=== PATIENT | male | born 1990 | race Two or more races ===

== ENCOUNTER 2020-11-07 17:18 | Inpatient (IN) | payer MEDICAID ==
[~2020-11-07] VITALS: Ht 160 cm; Wt 72.7 kg
[2020-11-07] MEDS ORDERED: TETanus/Pertussis (Acell)/Diphther VAC/PF (Tdap-Adult) 0.5ml syringe IMVAC ONE (19:55)
[2020-11-07] MEDS ORDERED: LIDOcaine 1% W/epiNEPHrine 1:200,000 10ml vial IJ ONE (19:55)
[2020-11-07 20:38] LABS: BASOPHILS # (AUTO) 0.1 X10'3 (0-0.2); BASOPHILS % (AUTO) 0.3 % (0-1); EOSINOPHILS # (AUTO) 0.1 X10'3 (0-0.9); EOSINOPHILS % (AUTO) 0.6 % (0-6); HEMOGLOBIN 14.2 g/dl (14.0-17.9); LYMPHOCYTES # (AUTO) 3.6 X10'3 (1.1-4.8); LYMPHOCYTES % (AUTO) 17.4 % (21-51); MEAN CORPUSCULAR HEMOGLOBIN 30.4 PG (27.0-31.0); MEAN CORPUSCULAR HGB CONC 33.7 g/dL (33.0-36.5); MEAN CORPUSCULAR VOLUME 90.2 FL (78-98); MEAN PLATELET VOLUME 7.2 FL (7.4-10.4); MONOCYTES # (AUTO) 2.2 X10'3 (0-0.9); MONOCYTES % (AUTO) 10.9 % (2-12); NEUTROPHILS # (AUTO) 14.5 X10'3 (1.8-7.7); NEUTROPHILS % (AUTO) 70.8 % (42-75); PLATELET COUNT 461 X10'3 (140-440); RED BLOOD COUNT 4.66 X10'6 (4.70-6.10); RED CELL DISTRIBUTION WIDTH 13.9 % (11.5-14.5); WHITE BLOOD COUNT 20.5 X10'3 (4.5-11.0)
[2020-11-07 20:59] LABS: ALANINE AMINOTRANSFERASE 114 U/L (12-78); ALBUMIN 3.2 G/DL (3.4-5.0); ALBUMIN/GLOBULIN RATIO 0.6 (1.1-1.5); ALKALINE PHOSPHATASE 139 IU/L (46-116); ANION GAP 8 (8-16); ASPARTATE AMINO TRANSFERASE 41 U/L (10-37); BILIRUBIN,TOTAL 0.9 MG/DL (0.1-1.0); BLOOD UREA NITROGEN 11 MG/DL (7-18); BUN/CREATININE RATIO 12.5 (5.4-32.0); CHLORIDE 96 MMOL/L (99-107); CREATININE 0.88 MG/DL (0.60-1.10); GLUCOSE 97 MG/DL (70-104); POTASSIUM 3.6 MMOL/L (3.5-5.1); SODIUM 132 MMOL/L (135-145); TOTAL CARBON DIOXIDE 27.7 MMOL/L (24-32); TOTAL PROTEIN 8.4 G/DL (6.4-8.2); eGFR > 90 ML/MIN
[2020-11-07] MEDS ORDERED: vancomycin/NS 1 GM ADD-VANTAGE 250 ML IV ONE (21:25)
[2020-11-07] MEDS ORDERED: piperacillin/tazo 3.375gm/50ml 50 ML IV ONE (21:25)
[2020-11-07] MEDS ORDERED: LORazepam 2 mg/ml vial IV ONE ×2 (21:45→22:35)
[2020-11-07] MEDS ORDERED: nicotine 14mg patch - 24hr TD ONE (21:45)
[2020-11-07] MEDS ORDERED: magnesium 2GM in 50ml NS 50 ML IV PRN (22:30)
[2020-11-07] MEDS ORDERED: potassium Cl 20 mEq SR tablet PO PRN ×2 (22:30)
[2020-11-07] MEDS ORDERED: ondansetron/PF 4mg/2ml inj IV PRN (22:30)
[2020-11-07] MEDS: normal saline 1000ml 1,000 ML IV SCH (22:30)
[2020-11-07] MEDS ORDERED: potassium Cl 40MEQ/1/2NS 520ml 520 ML IV PRN ×2 (22:30)
[2020-11-07] MEDS ORDERED: mag hydrox/Alum hydrox/simeth 30ml oral suspension PO PRN (22:30)
[2020-11-07] MEDS ORDERED: magnesium 4gm in 100ml NS 100 ML IV PRN (22:30)
[2020-11-07] MEDS ORDERED: acetaminophen 325mg tablet PO PRN (22:30)
[2020-11-07] MEDS ORDERED: magnesium hydroxide 30ml (MOM) UD suspension PO PRN (22:30)
[2020-11-07] MEDS ORDERED: HYDROmorphone 1 mg/ml syringe IV PRN ×2 (22:35)
--- NOTE | 2020-11-07 23:04 | NUR ---
Patient in room ED 10. I have received report from ROB Newton and had the opportunity to ask questions and assume patient care.
--- NOTE | 2020-11-07 23:36 | NUR ---
Patient arrived to floor, VSS, refusing skin check, states he doesnt want to be rude but has PTSD and cannot handle this "nurse stuff". Pt requesting food and drinks. Was able to get limited assessment done; pt would not uncover body from blankets. Non-skid socks placed on patient. Oriented to TV, bed functions, call mckenzie, and urinal. Patient instructed not to get out of bed without calling for stand by. Pt confirms understanding.
[2020-11-08] VITALS: BP 131/84
[2020-11-08] MEDS ORDERED: vancomycin/NS 1 GM ADD-VANTAGE 250 ML IV SCH (04:00)
--- NOTE | 2020-11-08 06:25 | NUR ---
Problems reprioritized. Patient report given, questions answered & plan of care reviewed with ROB Hernandez.
--- NOTE | 2020-11-08 07:00 | NUR ---
Patient in room [facility] 344. I have received report from Ramona Hermosillo RN and had the opportunity to ask questions and assume patient care.
[2020-11-08 07:02] LABS: BASOPHILS # (AUTO) 0.1 X10'3 (0-0.2); BASOPHILS % (AUTO) 0.3 % (0-1); EOSINOPHILS # (AUTO) 0.2 X10'3 (0-0.9); HEMATOCRIT 40.7 % (42.0-52.0); HEMOGLOBIN 13.6 g/dl (14.0-17.9); LYMPHOCYTES # (AUTO) 3.9 X10'3 (1.1-4.8); LYMPHOCYTES % (AUTO) 18.3 % (21-51); MEAN CORPUSCULAR HEMOGLOBIN 30.1 PG (27.0-31.0); MEAN CORPUSCULAR HGB CONC 33.5 g/dL (33.0-36.5); MEAN CORPUSCULAR VOLUME 89.9 FL (78-98); MEAN PLATELET VOLUME 7.2 FL (7.4-10.4); MONOCYTES # (AUTO) 2.4 X10'3 (0-0.9); MONOCYTES % (AUTO) 11.1 % (2-12); NEUTROPHILS # (AUTO) 14.9 X10'3 (1.8-7.7); NEUTROPHILS % (AUTO) 69.3 % (42-75); PLATELET COUNT 463 X10'3 (140-440); RED BLOOD COUNT 4.53 X10'6 (4.70-6.10); RED CELL DISTRIBUTION WIDTH 14.1 % (11.5-14.5); WHITE BLOOD COUNT 21.4 X10'3 (4.5-11.0)
[2020-11-08 07:25] LABS: ALANINE AMINOTRANSFERASE 96 U/L (12-78); ALBUMIN 2.6 G/DL (3.4-5.0); ALBUMIN/GLOBULIN RATIO 0.5 (1.1-1.5); ALKALINE PHOSPHATASE 127 IU/L (46-116); ANION GAP 7 (8-16); ASPARTATE AMINO TRANSFERASE 33 U/L (10-37); BILIRUBIN,TOTAL 0.7 MG/DL (0.1-1.0); BLOOD UREA NITROGEN 8 MG/DL (7-18); BUN/CREATININE RATIO 9.4 (5.4-32.0); CALCIUM 8.7 MG/DL (8.5-10.1); CHLORIDE 102 MMOL/L (99-107); CREATININE 0.85 MG/DL (0.60-1.10); GLUCOSE 95 MG/DL (70-104); MAGNESIUM 2.3 MG/DL (1.5-2.4); SODIUM 135 MMOL/L (135-145); TOTAL CARBON DIOXIDE 26.3 MMOL/L (24-32); TOTAL PROTEIN 7.6 G/DL (6.4-8.2); eGFR > 90 ML/MIN
[2020-11-08] MEDS: piperacillin/tazo 4.5gm/100ml 100 ML IV SCH ×3 (07:34→22:27)
[2020-11-08] MEDS: nicotine 21mg patch - 24 hr TD SCH (07:39)
[2020-11-08] MEDS: buprenorphine/naloxone 8MG-2MG SUBlingual film SL SCH (07:39)
[2020-11-08 07:46] LABS: PLATELET ESTIMATE INCREASED; TOTAL CELLS COUNTED 100
[2020-11-08 08:00] VITALS: BP 104/70
[2020-11-08] MEDS: K and/or MAG REPLACEMENT MC SCH ×2 (08:00→20:00)
[2020-11-08] MEDS: normal saline 1000ml 1,000 ML IV SCH ×2 (10:07→18:30)
--- NOTE | 2020-11-08 10:37 | NUR ---
PAGER ID: [phone] MESSAGE: Meli/surgical [id number]. Pt Marco RM: 344-B Pt c/o 06/19 pain, does not pain meds orders. can you pls order something? thank you
[2020-11-08] MEDS ORDERED: NO HOME MEDS (11:01)
[2020-11-08 12:00] VITALS: BP 103/65
--- NOTE | 2020-11-08 18:26 | NUR ---
Unable to hang 1600 Vanco. Pt has Zosyn running and refused to get another IV to administer Vanco.
--- NOTE | 2020-11-08 18:28 | NUR ---
Problems reprioritized. Patient report given, questions answered & plan of care reviewed with Corie RN.
[2020-11-08 19:00] VITALS: BP 124/75
[2020-11-08] MEDS: VANCOmycin 1250MG/NS 250ml Bag 250 ML IV SCH (19:57)
[2020-11-08] MEDS ORDERED: acetaminophen 325mg tablet PO PRN (22:10)
[2020-11-08] MEDS ORDERED: HYDROcodone/acetaminophen 10/325mg tab PO PRN (22:10)
[2020-11-08] MEDS: HYDROcodone/acetaminophen 5mg/325mg tablet PO PRN (22:39)
[2020-11-08 23:30] VITALS: BP 120/81
[2020-11-09] MEDS: normal saline 1000ml 1,000 ML IV SCH (03:28)
[2020-11-09] MEDS: VANCOmycin 1250MG/NS 250ml Bag 250 ML IV SCH (03:50)
[2020-11-09] MEDS: piperacillin/tazo 4.5gm/100ml 100 ML IV SCH (06:02)
[2020-11-09 06:09] LABS: BASOPHILS # (AUTO) 0.1 X10'3 (0-0.2); BASOPHILS % (AUTO) 0.8 % (0-1); EOSINOPHILS # (AUTO) 0.4 X10'3 (0-0.9); EOSINOPHILS % (AUTO) 2.8 % (0-6); HEMATOCRIT 36.8 % (42.0-52.0); HEMOGLOBIN 12.5 g/dl (14.0-17.9); LYMPHOCYTES # (AUTO) 5.1 X10'3 (1.1-4.8); LYMPHOCYTES % (AUTO) 38.6 % (21-51); MEAN CORPUSCULAR VOLUME 91.2 FL (78-98); MEAN PLATELET VOLUME 7.3 FL (7.4-10.4); MONOCYTES # (AUTO) 1.3 X10'3 (0-0.9); MONOCYTES % (AUTO) 9.9 % (2-12); NEUTROPHILS # (AUTO) 6.4 X10'3 (1.8-7.7); NEUTROPHILS % (AUTO) 47.9 % (42-75); PLATELET COUNT 447 X10'3 (140-440); RED BLOOD COUNT 4.04 X10'6 (4.70-6.10); RED CELL DISTRIBUTION WIDTH 13.8 % (11.5-14.5); WHITE BLOOD COUNT 13.3 X10'3 (4.5-11.0)
[2020-11-09 06:37] LABS: ALANINE AMINOTRANSFERASE 82 U/L (12-78); ALBUMIN 2.3 G/DL (3.4-5.0); ALBUMIN/GLOBULIN RATIO 0.5 (1.1-1.5); ALKALINE PHOSPHATASE 105 IU/L (46-116); ANION GAP 7 (8-16); ASPARTATE AMINO TRANSFERASE 33 U/L (10-37); BILIRUBIN,TOTAL 0.3 MG/DL (0.1-1.0); BLOOD UREA NITROGEN 8 MG/DL (7-18); BUN/CREATININE RATIO 10.7 (5.4-32.0); CALCIUM 8.1 MG/DL (8.5-10.1); CHLORIDE 107 MMOL/L (99-107); CREATININE 0.75 MG/DL (0.60-1.10); GLUCOSE 100 MG/DL (70-104); MAGNESIUM 2.1 MG/DL (1.5-2.4); SODIUM 139 MMOL/L (135-145); TOTAL CARBON DIOXIDE 25.2 MMOL/L (24-32); TOTAL PROTEIN 6.6 G/DL (6.4-8.2); eGFR > 90 ML/MIN
[2020-11-09 07:00] VITALS: BP 93/57
[2020-11-09] MEDS: K and/or MAG REPLACEMENT MC SCH (07:05)
[2020-11-09] MEDS: nicotine 21mg patch - 24 hr TD SCH (07:50)
[2020-11-09] MEDS: buprenorphine/naloxone 8MG-2MG SUBlingual film SL SCH (07:51)
[2020-11-09 11:00] VITALS: BP 117/75
[2020-11-09] MEDS: HYDROcodone/acetaminophen 5mg/325mg tablet PO PRN (12:04)
--- NOTE | 2020-11-09 13:47 | NUR ---
Vince Olvera RN, pt is leaving A. Dr. Nation was made aware.
--- NOTE | 2020-11-09 13:50 | NUR ---
Patient stated that he no longer wanted to be here and that he wanted to see his daughter. 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 Patient stated an understanding of this information yet still stated he would like to leave. Dr. Nation was informed and no new orders were given. Patient was then given information about how to take care of the bilateral I&D sites. Patient was also given supplies to take with him so that he could safely clean and change bandages. Patient PIV was removed with cannula intact and patient gathered belongings and left the hospital after signing the AMA form.
[2020-11-10] MEDS ORDERED: VANCOMYCIN LEVEL IV ONE (03:30)
== END 2020-11-09 13:57 | disposition left against medical advice (07) | DRG 720 ==
LOC: ER 17:19 → ED HOLD 22:27 → SUR 3N 23:15
PROVIDERS: ADMIT Family Medicine; ATTEND Internal Medicine
DX: A41.9 Sepsis, unspecified organism (principal); L02.414 Cutaneous abscess of left upper limb; L03.114 Cellulitis of left upper limb; L02.413 Cutaneous abscess of right upper limb; F11.90 Opioid use, unspecified, uncomplicated; F43.10 Post-traumatic stress disorder, unspecified; Z87.891 Personal history of nicotine dependence; F15.10 Other stimulant abuse, uncomplicated
CPT/HCPCS: 36415; 73218; 73221; 76882; 80053; 83605; 83735; 84145; 85007; 85025; 87040; 87070; 87077; 87081; 87186; 96365; 97161; 97530; 99285; G0378; J2060; J2543; J3370; J7030

== ENCOUNTER 2022-02-12 23:45 | Emergency (ER) | payer MEDICAID ==
[~2022-02-12] VITALS: Ht 162.6 cm; Wt 59.1 kg
[~2022-02-12 23:45] MED LIST: NO HOME MEDS
[2022-02-12 23:48] VITALS: BP 109/82
--- NOTE | 2022-02-13 00:30 | NUR ---
nil Addendum: 02/13/22 at 0111 by AFLYNN disregard
--- NOTE | 2022-02-13 01:44 | NUR ---
PT ASSESSED FOR POSSIBLE FO IN RECTUM. CT IMAGING COMPLETED. MD RE-EVALUATED PT. PT VERBALIZED UNDERSTANDING OF FOLLOW UP INSTRUCTIONS. NO IV WAS PLACED. NO FLUIDS. PT ALERT AND ORIENTED X4. AMBULATED WITH POLICE BACK TO POLICE CAR. PT DISCHARGED AND MEDICALLY CLEARED FOR INCARCERATION.
--- NOTE | 2022-02-13 01:48 | NUR ---
DISCHARGE VITALS: 58 BPM, HR 100% SPO2 ON RA 102/64 BP 16 RR
== END 2022-02-13 01:49 | disposition home or self-care (01) ==
LOC: ER 23:45
DX: Z00.8 Encounter for other general examination (principal); F15.90 Other stimulant use, unspecified, uncomplicated; F11.90 Opioid use, unspecified, uncomplicated; K59.00 Constipation, unspecified; Z56.0 Unemployment, unspecified; Z59.00 Homelessness unspecified
CPT/HCPCS: 74176; 99284

== ENCOUNTER 2022-04-20 15:24 | Emergency (ER) | payer MEDICAID ==
[~2022-04-20] VITALS: Ht 160 cm; Wt 59.0 kg
[2022-04-20] MEDS ORDERED: DOXY100C76 PO (15:34)
[2022-04-20] MEDS ORDERED: DOXYCYCLINE 100MG CAPSULE PO STA (15:34)
[2022-04-20 15:45] VITALS: BP 105/70
== END 2022-04-20 16:20 | disposition home or self-care (01) ==
LOC: ER 15:24
DX: L08.89 Other specified local infections of the skin and subcutaneous tissue (principal); F15.90 Other stimulant use, unspecified, uncomplicated; F11.90 Opioid use, unspecified, uncomplicated; Z59.00 Homelessness unspecified; Z56.0 Unemployment, unspecified; Z79.899 Other long term (current) drug therapy
CPT/HCPCS: 99283

== ENCOUNTER 2022-07-19 16:38 | Emergency (ER) | payer MEDICAID ==
[~2022-07-19] VITALS: Ht 160 cm; Wt 61.0 kg
[2022-07-19 16:54] VITALS: BP 105/63
== END 2022-07-19 18:07 | disposition home or self-care (01) ==
LOC: ER 16:38
DX: G57.33 Lesion of lateral popliteal nerve, bilateral lower limbs (principal); F15.10 Other stimulant abuse, uncomplicated; F14.10 Cocaine abuse, uncomplicated; Z56.0 Unemployment, unspecified; Z59.00 Homelessness unspecified
CPT/HCPCS: 99283; L4360; L1930

== ENCOUNTER 2023-10-09 06:40 | Emergency (ER) | payer MEDICAID ==
[~2023-10-09] VITALS: Ht 160 cm; Wt 59.1 kg
[2023-10-09 06:43] VITALS: TEMP 98.3
[2023-10-09] MEDS ORDERED: metoclopramide 5 mg/ml inj IV ONE (07:10)
[2023-10-09] MEDS ORDERED: normal saline 1000ML IV soln IVB ONE ×2 (07:10)
[2023-10-09] MEDS ORDERED: diphenhydrAMINE 50 mg/ml inj IV ONE (07:10)
--- NOTE | 2023-10-09 08:05 | NUR ---
PT RESTING QUIETLY. NO LABORED BREATHING.
[2023-10-09 09:05] LABS: BILIRUBIN,URINE NEGATIVE (Neg); CLARITY,URINE CLEAR (Clear); COLOR,URINE YELLOW (Yellow); GLUCOSE, URINE NEGATIVE (Neg); KETONES,URINE 15 mg/dl (Neg); LEUKOCYTE ESTERASE ,URINE NEGATIVE (Neg); NITRITES, URINE NEGATIVE (Neg); OCCULT BLOOD,URINE NEGATIVE (Neg); PROTEIN,URINE TRACE mg/dl (Neg); UROBILINOGEN,URINE 0.2 E.U/dL (0.2-1.0)
[2023-10-09 09:08] LABS: BASOPHILS % (AUTO) 0.2 % (0-1); EOSINOPHILS % (AUTO) 0 % (0-6); HEMATOCRIT 39.4 % (42.0-52.0); HEMOGLOBIN 12.5 g/dl (14.0-17.9); LYMPHOCYTES # (AUTO) 1.8 X10'3 (1.1-4.8); LYMPHOCYTES % (AUTO) 11.9 % (21-51); MEAN CORPUSCULAR HEMOGLOBIN 25.1 PG (27.0-31.0); MEAN CORPUSCULAR HGB CONC 31.7 g/dL (33.0-36.5); MEAN CORPUSCULAR VOLUME 79.4 FL (78-98); MEAN PLATELET VOLUME 7.7 FL (7.4-10.4); MONOCYTES # (AUTO) 1.9 X10'3 (0-0.9); NEUTROPHILS # (AUTO) 11.8 X10'3 (1.8-7.7); NEUTROPHILS % (AUTO) 75.9 % (42-75); PLATELET COUNT 481 X10'3 (140-440); RED BLOOD COUNT 4.96 X10'6 (4.70-6.10); RED CELL DISTRIBUTION WIDTH 16.2 % (11.5-14.5); WHITE BLOOD COUNT 15.5 X10'3 (4.5-11.0)
--- NOTE | 2023-10-09 09:15 | NUR ---
UA sent to lab.
[2023-10-09 09:25] LABS: UA COLLECTION TYPE CLN CATCH MIDSTREAM
[2023-10-09 09:26] LABS: MUCUS STRANDS MANY /LPF (Neg); SPERM FEW /HPF (NEGATIVE); SQUAMOUS EPITHELIAL CELL,UR FEW /LPF (FEW)
[2023-10-09 09:27] LABS: BACTERIA,URINE FEW /HPF (Neg); WBC,URINE 0-4 /HPF (0-4)
[2023-10-09] MEDS ORDERED: ONDA4TAB12 PO (09:35)
[2023-10-09] MEDS ORDERED: OMEP40CA21 PO (09:35)
[2023-10-09 10:05] VITALS: BP 124/82; PULSE 100; RESP 16; O2SAT 100
--- NOTE | 2023-10-09 10:09 | NUR ---
PT DC BY . PATIENT STATES HE IS HOMELESS. WILL GET PATIENT A BUS PASS [facility].
[2023-10-09 10:24] LABS: GIANT PLATELET FEW; MICROCYTOSIS 1+; PLATELET ESTIMATE INCREASED
[2023-10-09 10:25] LABS: ANISOCYTOSIS 1+; BURR CELLS FEW; ELLIPTOCYTES FEW; SCHISTOCYTES FEW
== END 2023-10-09 11:30 | disposition home or self-care (01) ==
LOC: ER 06:41
DX: K92.0 Hematemesis (principal); R10.13 Epigastric pain; Z72.89 Other problems related to lifestyle; F15.90 Other stimulant use, unspecified, uncomplicated; F11.90 Opioid use, unspecified, uncomplicated; Z59.00 Homelessness unspecified; Z56.0 Unemployment, unspecified; Z79.899 Other long term (current) drug therapy
CPT/HCPCS: 36415; 81001; 85008; 85025; 93005; 96361; 96374; 96375; 99284; J1200; J2765; J7030

== ENCOUNTER 2023-10-17 05:24 | Inpatient (IN) | payer MEDICAID ==
[~2023-10-17] VITALS: Ht 162.6 cm; Wt 59.1 kg
[~2023-10-17 05:24] MED LIST changes: +OMEP40CA21 PO; +ONDA4TAB12 PO
[2023-10-17] MEDS ORDERED: ketorolac trometh. 30mg/ml inj. IV ONE (05:50)
[2023-10-17] MEDS ORDERED: normal saline 1000ml 1,000 ML IV ONE ×2 (05:50→06:35)
[2023-10-17 06:17] LABS: BILIRUBIN,URINE NEGATIVE (Neg); CLARITY,URINE SLIGHTLY CLOUDY (Clear); COLOR,URINE YELLOW (Yellow); GLUCOSE, URINE NEGATIVE (Neg); KETONES,URINE NEGATIVE (Neg); LEUKOCYTE ESTERASE ,URINE NEGATIVE (Neg); NITRITES, URINE NEGATIVE (Neg); OCCULT BLOOD,URINE NEGATIVE (Neg); PROTEIN,URINE TRACE mg/dl (Neg)
[2023-10-17 06:18] LABS: BASOPHILS # (AUTO) 0.1 X10'3 (0-0.2); BASOPHILS % (AUTO) 0.2 % (0-1); EOSINOPHILS # (AUTO) 0.1 X10'3 (0-0.9); EOSINOPHILS % (AUTO) 0.2 % (0-6); HEMATOCRIT 30.5 % (42.0-52.0); HEMOGLOBIN 9.7 g/dl (14.0-17.9); LYMPHOCYTES # (AUTO) 1.2 X10'3 (1.1-4.8); LYMPHOCYTES % (AUTO) 4.2 % (21-51); MEAN CORPUSCULAR HEMOGLOBIN 25.2 PG (27.0-31.0); MEAN CORPUSCULAR HGB CONC 31.9 g/dL (33.0-36.5); MEAN CORPUSCULAR VOLUME 79.2 FL (78-98); MEAN PLATELET VOLUME 7.2 FL (7.4-10.4); MONOCYTES # (AUTO) 2.9 X10'3 (0-0.9); MONOCYTES % (AUTO) 9.8 % (2-12); NEUTROPHILS # (AUTO) 25.4 X10'3 (1.8-7.7); NEUTROPHILS % (AUTO) 85.6 % (42-75); PLATELET COUNT 407 X10'3 (140-440); RED BLOOD COUNT 3.85 X10'6 (4.70-6.10); RED CELL DISTRIBUTION WIDTH 16.6 % (11.5-14.5)
[2023-10-17 06:20] LABS: UA COLLECTION TYPE URINAL
[2023-10-17 06:22] LABS: INR 1.1 INR; PROTHROMBIN TIME 11.5 SECONDS (9.0-12.0)
[2023-10-17 06:27] LABS: ALANINE AMINOTRANSFERASE 30 U/L (12-78); ALBUMIN 2.5 G/DL (3.4-5.0); ALBUMIN/GLOBULIN RATIO 0.6 (1.1-1.5); ALKALINE PHOSPHATASE 111 IU/L (46-116); ANION GAP 6 (8-16); ASPARTATE AMINO TRANSFERASE 26 U/L (10-37); BILIRUBIN,TOTAL 0.7 MG/DL (0.1-1.0); BLOOD UREA NITROGEN 10 MG/DL (7-18); BUN/CREATININE RATIO 12.7 (10.0-20.0); CALCIUM 8.4 MG/DL (8.5-10.1); CHLORIDE 97 MMOL/L (99-107); CREATININE 0.79 MG/DL (0.60-1.10); GLUCOSE 135 MG/DL (70-104); MAGNESIUM 1.9 MG/DL (1.5-2.4); POTASSIUM 3.6 MMOL/L (3.5-5.1); SODIUM 132 MMOL/L (135-145); TOTAL CARBON DIOXIDE 29.2 MMOL/L (24-32); WHITE BLOOD COUNT 29.7 X10'3 (4.5-11.0); eCRCL 112 ML/MIN; eGFR > 90 ML/MIN
[2023-10-17 06:35] LABS: AMORPHOUS URATES 2+; BACTERIA,URINE FEW /HPF (Neg); MUCUS STRANDS FEW /LPF (Neg); RBC,URINE NONE SEEN /HPF (0-2); SPERM FEW /HPF (NEGATIVE); SQUAMOUS EPITHELIAL CELL,UR NONE SEEN /LPF (FEW); WBC,URINE 0-4 /HPF (0-4)
[2023-10-17] MEDS ORDERED: vancomycin/NS 1 GM ADD-VANTAGE 250 ML IV ONE (06:35)
[2023-10-17] MEDS ORDERED: cefepime 2g/NS 100ml ADVANTAGE 100 ML IV ONE (07:00)
[2023-10-17 07:25] LABS: ANISOCYTOSIS 1+; HYPOCHROMASIA 1+; MICROCYTOSIS 1+; PLATELET ESTIMATE NORMAL; TOTAL CELLS COUNTED 100
[2023-10-17 07:26] LABS: SCHISTOCYTES FEW
[2023-10-17] MEDS ORDERED: LIDOcaine 1% 30ml preserv. free vial SQ STA (07:51)
[2023-10-17 11:03] LABS: GLUCOSE,SYNOVIAL FLUID 139 MG/DL; TOTAL PROTEIN,SYNOVIAL FLUID 2.1 GM/DL
[2023-10-17 11:16] LABS: APPEARANCE,SYNOVIAL FLUID HAZY; COLOR,SYNOVIAL FLUID YELLOW
[2023-10-17 11:17] LABS: SYN RBC 483 /CU MM (0); SYN WBC 65 /CU MM (0-200); SYNOVIAL FLUID CRYSTALS QT NO CRYSTALS SEEN
[2023-10-17] MEDS ORDERED: iohexol 300mg/ml 100ml inj. ONE (11:35)
[2023-10-17] MEDS ORDERED: ondansetron/PF 4mg/2ml inj IV PRN ×2 (11:55→22:05)
[2023-10-17] MEDS ORDERED: mag hydrox/Alum hydrox/simeth 30ml oral suspension PO PRN (11:55)
[2023-10-17] MEDS ORDERED: potassium Cl 20 mEq SR tablet PO PRN (11:55)
[2023-10-17] MEDS ORDERED: magnesium Cl slow-release 64mg tablet PO PRN (11:55)
[2023-10-17] MEDS ORDERED: magnesium 4gm in 100ml NS 100 ML IV PRN (11:55)
[2023-10-17] MEDS ORDERED: HYDROcodone/acetaminophen 5mg/325mg tablet PO PRN (11:55)
[2023-10-17] MEDS ORDERED: magnesium hydroxide 30ml (MOM) UD suspension PO PRN (11:55)
[2023-10-17] MEDS ORDERED: acetaminophen 325mg tablet PO PRN (11:55)
[2023-10-17] MEDS ORDERED: potassium Cl 40MEQ/1/2NS 520ml 520 ML IV PRN (11:55)
[2023-10-17] MEDS ORDERED: docusate sod 100mg capsule PO PRN (11:55)
[2023-10-17] MEDS: normal saline 1000ml 1,000 ML IV SCH (13:33)
[2023-10-17 14:18] LABS: URINE AMPHETAMINE SCREEN POSITIVE (Neg); URINE BARBITUATE SCREEN NEGATIVE (Neg); URINE BENZODIAZEPINES SCREEN NEGATIVE (Neg); URINE CANNABINOID SCREEN NEGATIVE (Neg); URINE COCAINE SCREEN NEGATIVE (Neg); URINE METHADONE SCREEN NEGATIVE (Neg); URINE OPIATE SCREEN NEGATIVE (Neg); URINE PHENCYCLIDINE SCREEN NEGATIVE (Neg)
[2023-10-17] MEDS: piperacillin/tazo 3.375gm/50ml 50 ML IV SCH ×2 (16:24→23:00)
[2023-10-17 17:39] VITALS: BP 121/74; PULSE 83; RESP 12; TEMP 99.2; O2SAT 99
[2023-10-17 18:00] VITALS: BP 121/74; PULSE 83; RESP 12; TEMP 99.2; O2SAT 99
[2023-10-17] MEDS: VANCOmycin 1250MG/NS 250ml Bag 250 ML IV SCH (18:26)
[2023-10-17] MEDS: heparin, porcine 5000 units/ml vial SQ SCH (19:42)
[2023-10-17] MEDS ORDERED: QUEtiapine 25mg tablet PO SCH (22:08)
[2023-10-17] MEDS ORDERED: QUEtiapine 25mg tablet PO PRN (22:10)
[2023-10-18] MEDS ORDERED: diphenhydrAMINE 50 mg/ml inj IV PRN (01:55)
[2023-10-18 02:10] VITALS: O2SAT 99
[2023-10-18] MEDS: LORazepam 2 mg/ml vial IV PRN ×3 (02:20→11:41)
[2023-10-18 06:00] VITALS: O2SAT 99
[2023-10-18 06:16] LABS: BASOPHILS % (AUTO) 0.1 % (0-1); EOSINOPHILS % (AUTO) 0 % (0-6); HEMOGLOBIN 9.8 g/dl (14.0-17.9); LYMPHOCYTES # (AUTO) 0.9 X10'3 (1.1-4.8); LYMPHOCYTES % (AUTO) 2.7 % (21-51); MEAN CORPUSCULAR HEMOGLOBIN 24.8 PG (27.0-31.0); MEAN CORPUSCULAR HGB CONC 31.6 g/dL (33.0-36.5); MEAN CORPUSCULAR VOLUME 78.6 FL (78-98); MEAN PLATELET VOLUME 8.1 FL (7.4-10.4); MONOCYTES # (AUTO) 2.5 X10'3 (0-0.9); MONOCYTES % (AUTO) 7.4 % (2-12); NEUTROPHILS # (AUTO) 30.2 X10'3 (1.8-7.7); NEUTROPHILS % (AUTO) 89.8 % (42-75); PLATELET COUNT 439 X10'3 (140-440); RED BLOOD COUNT 3.95 X10'6 (4.70-6.10); RED CELL DISTRIBUTION WIDTH 16.4 % (11.5-14.5)
[2023-10-18 06:33] LABS: % IRON SATURATION 3 % (11-46); IRON 9 UG/DL (53-167); TOTAL IRON BINDING CAPACITY 275 UG/DL (259-388)
[2023-10-18 06:41] LABS: ALANINE AMINOTRANSFERASE 30 U/L (12-78); ALBUMIN 2.3 G/DL (3.4-5.0); ALBUMIN/GLOBULIN RATIO 0.5 (1.1-1.5); ALKALINE PHOSPHATASE 117 IU/L (46-116); ANION GAP 10 (8-16); ASPARTATE AMINO TRANSFERASE 27 U/L (10-37); BILIRUBIN,TOTAL 1.2 MG/DL (0.1-1.0); BLOOD UREA NITROGEN 9 MG/DL (7-18); BUN/CREATININE RATIO 13.4 (10.0-20.0); CALCIUM 8.4 MG/DL (8.5-10.1); CHLORIDE 98 MMOL/L (99-107); CREATININE 0.67 MG/DL (0.60-1.10); FERRITIN 77 NG/ML (26-388); GLUCOSE 127 MG/DL (70-104); MAGNESIUM 1.9 MG/DL (1.5-2.4); SODIUM 131 MMOL/L (135-145); TOTAL CARBON DIOXIDE 23.1 MMOL/L (24-32); TOTAL PROTEIN 6.8 G/DL (6.4-8.2); eCRCL 132 ML/MIN; eGFR > 90 ML/MIN
[2023-10-18 06:46] LABS: WHITE BLOOD COUNT 33.6 X10'3 (4.5-11.0)
[2023-10-18] MEDS: heparin, porcine 5000 units/ml vial SQ SCH ×2 (07:49→19:14)
[2023-10-18] MEDS: VANCOmycin 1250MG/NS 250ml Bag 250 ML IV SCH ×2 (07:49→20:39)
[2023-10-18] MEDS: piperacillin/tazo 3.375gm/50ml 50 ML IV SCH ×2 (07:49→16:11)
[2023-10-18 07:54] LABS: ANISOCYTOSIS 1+; HYPOCHROMASIA 1+; MICROCYTOSIS 1+; PLATELET ESTIMATE NORMAL; TOTAL CELLS COUNTED 100
[2023-10-18 07:55] LABS: POIKILOCYTOSIS FEW; TOXIC VACUOLATION FEW
[2023-10-18] MEDS: normal saline 1000ml 1,000 ML IV SCH ×2 (07:55→16:13)
[2023-10-18] MEDS: potassium Cl 20 mEq SR tablet PO PRN ×3 (08:06→17:51)
[2023-10-18 10:31] VITALS: RESP 14; O2SAT 96
[2023-10-18] MEDS: HYDROcodone/acetaminophen 10/325mg tab PO PRN ×3 (11:41→21:59)
[2023-10-18 15:33] VITALS: BP 117/71; PULSE 81; RESP 14; TEMP 100.6; O2SAT 95
[2023-10-18 18:00] VITALS: BP 108/67; PULSE 77; RESP 16; TEMP 99.8; O2SAT 96
[2023-10-18] MEDS: ferrous sulfate 325mg tablet PO SCH (19:19)
[2023-10-18 22:00] VITALS: BP 101/56; PULSE 88; RESP 18; TEMP 99.4; O2SAT 99
[2023-10-19] MEDS: piperacillin/tazo 3.375gm/50ml 50 ML IV SCH ×3 (00:16→16:00)
[2023-10-19 05:00] VITALS: BP 105/66; PULSE 79; RESP 17; TEMP 98.2; O2SAT 99
[2023-10-19] MEDS: HYDROcodone/acetaminophen 10/325mg tab PO PRN ×2 (05:59→16:39)
[2023-10-19] MEDS ORDERED: VANCOMYCIN LEVEL IV ONE (06:30)
[2023-10-19 06:57] LABS: BASOPHILS % (AUTO) 0.1 % (0-1); EOSINOPHILS % (AUTO) 0.1 % (0-6); HEMOGLOBIN 9.8 g/dl (14.0-17.9); LYMPHOCYTES # (AUTO) 1.6 X10'3 (1.1-4.8); MEAN CORPUSCULAR HEMOGLOBIN 25.4 PG (27.0-31.0); MEAN CORPUSCULAR HGB CONC 32.7 g/dL (33.0-36.5); MEAN CORPUSCULAR VOLUME 77.6 FL (78-98); MEAN PLATELET VOLUME 7.3 FL (7.4-10.4); MONOCYTES # (AUTO) 1.5 X10'3 (0-0.9); MONOCYTES % (AUTO) 6.4 % (2-12); NEUTROPHILS # (AUTO) 19.8 X10'3 (1.8-7.7); NEUTROPHILS % (AUTO) 86.4 % (42-75); PLATELET COUNT 463 X10'3 (140-440); RED BLOOD COUNT 3.86 X10'6 (4.70-6.10); RED CELL DISTRIBUTION WIDTH 17.1 % (11.5-14.5); WHITE BLOOD COUNT 22.9 X10'3 (4.5-11.0)
[2023-10-19] MEDS: heparin, porcine 5000 units/ml vial SQ SCH ×2 (07:01→09:35)
[2023-10-19 07:20] LABS: ALANINE AMINOTRANSFERASE 32 U/L (12-78); ALBUMIN 2.1 G/DL (3.4-5.0); ALBUMIN/GLOBULIN RATIO 0.5 (1.1-1.5); ALKALINE PHOSPHATASE 135 IU/L (46-116); ANION GAP 11 (8-16); ASPARTATE AMINO TRANSFERASE 23 U/L (10-37); BILIRUBIN,TOTAL 0.9 MG/DL (0.1-1.0); BLOOD UREA NITROGEN 11 MG/DL (7-18); BUN/CREATININE RATIO 17.5 (10.0-20.0); CALCIUM 8.2 MG/DL (8.5-10.1); CHLORIDE 101 MMOL/L (99-107); CREATININE 0.63 MG/DL (0.60-1.10); GLUCOSE 107 MG/DL (70-104); PHOSPHORUS 2.5 MG/DL (2.3-4.5); POTASSIUM 3.4 MMOL/L (3.5-5.1); SODIUM 133 MMOL/L (135-145); TOTAL PROTEIN 6.5 G/DL (6.4-8.2); VANCOMYCIN,TROUGH 5.3 ug/mL (10.0-20.0); eCRCL 141 ML/MIN; eGFR > 90 ML/MIN
[2023-10-19] MEDS: VANCOmycin 1250MG/NS 250ml Bag 250 ML IV SCH (07:43)
[2023-10-19] MEDS ORDERED: normal saline 1000ml 1,000 ML IV SCH (08:45)
[2023-10-19] MEDS ORDERED: LORazepam 2 mg/ml vial IV PRN (08:45)
[2023-10-19 09:00] VITALS: RESP 16; O2SAT 100
[2023-10-19] MEDS: ferrous sulfate 325mg tablet PO SCH (09:34)
[2023-10-19 10:00] VITALS: BP 108/73; PULSE 92; RESP 20; TEMP 98.5; O2SAT 100
[2023-10-19 14:14] LABS: BASOPHILS # (AUTO) 0.1 X10'3 (0-0.2); BASOPHILS % (AUTO) 0.3 % (0-1); EOSINOPHILS % (AUTO) 0.2 % (0-6); HEMATOCRIT 30.6 % (42.0-52.0); HEMOGLOBIN 9.8 g/dl (14.0-17.9); LYMPHOCYTES # (AUTO) 1.9 X10'3 (1.1-4.8); LYMPHOCYTES % (AUTO) 10.1 % (21-51); MEAN CORPUSCULAR HGB CONC 32.1 g/dL (33.0-36.5); MEAN CORPUSCULAR VOLUME 77.9 FL (78-98); MEAN PLATELET VOLUME 7.6 FL (7.4-10.4); MONOCYTES # (AUTO) 1.3 X10'3 (0-0.9); MONOCYTES % (AUTO) 7.1 % (2-12); NEUTROPHILS # (AUTO) 15.3 X10'3 (1.8-7.7); NEUTROPHILS % (AUTO) 82.3 % (42-75); PLATELET COUNT 460 X10'3 (140-440); RED BLOOD COUNT 3.93 X10'6 (4.70-6.10); RED CELL DISTRIBUTION WIDTH 16.9 % (11.5-14.5); WHITE BLOOD COUNT 18.6 X10'3 (4.5-11.0)
[2023-10-19] MEDS ORDERED: FER325T PO (15:49)
[2023-10-19] MEDS ORDERED: DOXY-243 PO (15:49)
[2023-10-19] MEDS ORDERED: PANT40TA54 PO (16:54)
[2023-10-19 17:00] VITALS: RESP 16
[2023-10-19] MEDS ORDERED: VANCOMYCIN 1,500MG in NS 300ml IVPB IV SCH (19:00)
[2023-10-21] MEDS ORDERED: VANCOMYCIN LEVEL IV ONE (06:30)
== END 2023-10-19 17:56 | disposition home or self-care (01) | DRG 351 ==
LOC: ER 05:24 → ED HOLD 12:04 → EDBEDREQ 16:38 → ORTHO 4S 17:20
PROVIDERS: ADMIT Family Medicine; ATTEND Family Medicine
PROC: 0S9C3ZZ Drainage of Right Knee Joint, Percutaneous Approach (ICD-10-PCS; principal; 2023-10-17)
DX: M25.461 Effusion, right knee (principal); E87.1 Hypo-osmolality and hyponatremia; L03.115 Cellulitis of right lower limb; D72.829 Elevated white blood cell count, unspecified; F17.200 Nicotine dependence, unspecified, uncomplicated; E86.0 Dehydration; F19.11 Other psychoactive substance abuse, in remission; E87.6 Hypokalemia; D64.9 Anemia, unspecified; F11.90 Opioid use, unspecified, uncomplicated; Z79.899 Other long term (current) drug therapy; Z59.00 Homelessness unspecified
CPT/HCPCS: 36415; 73560; 73701; 80053; 80202; 80305; 81001; 82607; 82728; 82945; 83540; 83550; 83605; 83735; 84100; 84132; 84145; 84157; 85007; 85025; 85610; 85651; 86140; 87040; 87070; 87075; 87081; 87088; 87102; 89051; 89060; 93971; 97161; 97530; 99285; A6449; G0378; J0692; J1200; J1644; J1885; J2060; J2405; J2543; J3370; J3490; J7030; Q9967